=== PATIENT | male | born 1960 | race Caucasian/White ===

== ENCOUNTER 2016-06-05 18:32 | Observation (INO) | payer MEDICARE ==
[2016-06-05] MEDS ORDERED: KETOROLAC 30 MG/ML 1 ML VIAL IVP STA (20:35)
[2016-06-05] MEDS ORDERED: ASPIRIN 81 MG CHEW PO STA (20:35)
--- NOTE | 2016-06-05 20:39 | ED ---
General Adult HPI - General Chief complaint: Chest Pain Stated complaint: arm pit pain Time Seen by Provider: 06/05/16 20:20 Source: patient Mode of arrival: ambulatory Limitations: no limitations - History of Present Illness Initial comments: Patient is a 55-year-old male with history of hypertension, diabetes, family history of cardiac disease presenting with substernal chest pain as well as right arm pain. Patient states the past 2 days he was having substernal discomfort. He tried [id number] medications as he recently is getting better for a cough/congestion. Patient states today he developed right armpit pain for which prompted the ER. Patient tried Aleve without relief. Patient denies fever, chills, shortness breath, nausea, vomiting, diarrhea, dysuria. - Related Data Allergies Allergy/AdvReac Type Severity Reaction Status Date / Time No Known Allergies Allergy Verified 06/05/16 19:04 Review of Systems ROS Statement: Those systems with pertinent positive or pertinent negative responses have been documented in the HPI. Constitutional: No fever and no chills. HENT: No congestion, no rhinorrhea and no sore throat. Eyes: No discharge and no redness. Respiratory: No cough and no shortness of breath. Cardiovascular: +chest pain and no palpitations. Gastrointestinal: No nausea, no vomiting, no abdominal pain and no diarrhea. Genitourinary: No dysuria and no hematuria. Musculoskeletal: No back pain and +arthralgias. Skin: No pallor and no rash. Neurological: No dizziness and No headaches. ROS Other: All systems not noted in ROS Statement are negative. Past Medical History Additional Past Medical History / Comment(s): back pain History of Any Multi-Drug Resistant Organisms: None Reported Past Surgical History: Back Surgery, Cholecystectomy, Orthopedic Surgery Additional Past Surgical History / Comment(s): laminectomy, right hand pins Past Psychological History: No Psychological Hx Reported Smoking Status: Former smoker Past Alcohol Use History: None Reported Past Drug Use History: None Reported General Exam - General Exam Comments Initial Comments: Constitutional: Patient appears well-developed and well-nourished. No distress. Head: Normocephalic and atraumatic. Eyes: Conjunctivae and EOM are normal. Right eye exhibits no discharge. Left eye exhibits no discharge. No scleral icterus. Neck: Normal range of motion. Neck supple. Cardiovascular: Normal rate and regular rhythm. No murmur heard. Pulmonary/Chest: Effort normal and breath sounds normal. No respiratory distress. No wheezes. Reproducible chest wall tenderness as well as right axillary tenderness. Abdominal: Soft. No distension. There is no tenderness. There is no rebound and no guarding. Musculoskeletal: Normal range of motion. No edema or tenderness. Neurological: Patient alert and oriented to person, place, and time. Skin: Skin is warm and dry. Not diaphoretic. Nursing notes and vitals reviewed. Limitations: no limitations Course Vital Signs 06/05/16 18:59 Temperature 99.0 F Pulse Rate 98 Respiratory 20 Rate Blood Pressure 182/88 O2 Sat by Pulse 98 Oximetry - Reevaluation(s) Reevaluation #1: 06/05/16 23:41 Patient mildly feeling better. EKG Findings - EKG Comments: EKG Findings:: Rate 85. NSR. No ST-T wave changes. [place] internal normal . Right bundle branch block. QTc duration normal. Medical Decision Making - Medical Decision Making Patient is a 55-year-old male with history of diabetes, hypertension, hyperlipidemia, family history of early heart disease presenting with chest pain. Patient states he had a cough and congestion 2 weeks ago which was improving. For the past 2 days he been having substernal chest pain that radiates to his right armpit. Patient takes Aleve for the pain without relief. Patient states several years ago he had a stress test and cardiac cath which were unremarkable. Patient states he does not follow with her regular physician. Patient had an EKG showing right bundle branch block. CBC, BMP, troponin unremarkable. Glucose did come back at 354. Chest x-ray was unremarkable. Heart score 4. Patient was resting comfortably in bed. Course of stay improved. Denies pain. Discussed physical exam and diagnostic tests with patient. Questions answered and patient is agreeable to staying in the hospital. Discussed H&P and pertinent diagnostic tests with admitting physician who agrees with plan and accepts admission of patient. - Lab Data Result diagrams: 06/05/16 21:09 06/05/16 21:09 Lab Results 06/05/16 06/05/16 06/05/16 Range/Units 21:09 21:09 21:09 WBC 8.5 (3.8-10.6) k/uL RBC 4.77 (4.30-5.90) m/uL Hgb 14.1 (13.0-17.5) gm/dL Hct 41.5 (39.0-53.0) % MCV 87.2 (80.0-100.0) fL MCH 29.6 (25.0-35.0) pg MCHC 34.0 (31.0-37.0) g/dL RDW 12.8 (11.5-15.5) % Plt Count 295 (150-450) k/uL Neutrophils % 63 % Lymphocytes % 27 % Monocytes % 4 % Eosinophils % 3 % Basophils % 1 % Neutrophils # 5.4 (1.3-7.7) k/uL Lymphocytes # 2.3 (1.0-4.8) k/uL Monocytes # 0.3 (0-1.0) k/uL Eosinophils # 0.2 (0-0.7) k/uL Basophils # 0.1 (0-0.2) k/uL PT 10.4 (9.0-12.0) sec INR 1.0 (<1.1) APTT 22.3 (22.0-30.0) sec Sodium 137 (137-145) mmol/L Potassium 4.7 (3.5-5.1) mmol/L Chloride 101 (98-107) mmol/L Carbon Dioxide 26 (22-30) mmol/L Anion Gap 10 mmol/L BUN 13 (9-20) mg/dL Creatinine 0.67 (0.66-1.25) mg/dL Est GFR (MDRD) Af Amer >60 (>60 ml/min/1.73 sqM) Est GFR (MDRD) Non-Af >60 (>60 ml/min/1.73 sqM) Glucose 354 H (74-99) mg/dL Calcium 9.4 (8.4-10.2) mg/dL Troponin I (0.000-0.034) ng/mL 06/05/16 Range/Units 21:09 WBC (3.8-10.6) k/uL RBC (4.30-5.90) m/uL Hgb (13.0-17.5) gm/dL Hct (39.0-53.0) % MCV (80.0-100.0) fL MCH (25.0-35.0) pg MCHC (31.0-37.0) g/dL RDW (11.5-15.5) % Plt Count (150-450) k/uL Neutrophils % % Lymphocytes % % Monocytes % % Eosinophils % % Basophils % % Neutrophils # (1.3-7.7) k/uL Lymphocytes # (1.0-4.8) k/uL Monocytes # (0-1.0) k/uL Eosinophils # (0-0.7) k/uL Basophils # (0-0.2) k/uL PT (9.0-12.0) sec INR (<1.1) APTT (22.0-30.0) sec Sodium (137-145) mmol/L Potassium (3.5-5.1) mmol/L Chloride (98-107) mmol/L Carbon Dioxide (22-30) mmol/L Anion Gap mmol/L BUN (9-20) mg/dL Creatinine (0.66-1.25) mg/dL Est GFR (MDRD) Af Amer (>60 ml/min/1.73 sqM) Est GFR (MDRD) Non-Af (>60 ml/min/1.73 sqM) Glucose (74-99) mg/dL Calcium (8.4-10.2) mg/dL Troponin I <0.012 (0.000-0.034) ng/mL Disposition Clinical Impression: Chest pain Disposition: ADMITTED IP TO THIS HOSP Referrals: None,Stated [Primary Care Provider] - 1-2 days Decision to Admit Reason: Admit from EC
[2016-06-05 21:21] LABS: Basophils # (A) 0.1 k/uL (0-0.2); Basophils % (A) 1 %; CH 29.8; CHCM 34.4; Eosinophils # (A) 0.2 k/uL (0-0.7); Eosinophils % (A) 3 %; HCT 41.5 % (39.0-53.0); HDW 3.02; HGB 14.1 gm/dL (13.0-17.5); Luc % (Auto) 2; Lymphocytes # (A) 2.3 k/uL (1.0-4.8); Lymphocytes % (A) 27 %; MCH 29.6 pg (25.0-35.0); MCV 87.2 fL (80.0-100.0); Mean Platelet Volume 7.3; Monocytes # (A) 0.3 k/uL (0-1.0); Monocytes % (A) 4 %; Neutrophils # (A) 5.4 k/uL (1.3-7.7); Neutrophils % (A) 63 %; RBC 4.77 m/uL (4.30-5.90); RDW 12.8 % (11.5-15.5); WBC 8.5 k/uL (3.8-10.6); WBC (Perox) 8.77
[2016-06-05 21:31] LABS: Anion Gap 10 mmol/L; Blood Urea Nitrogen 13 mg/dL (9-20); Calcium 9.4 mg/dL (8.4-10.2); Carbon Dioxide 26 mmol/L (22-30); Chloride 101 mmol/L (98-107); Glucose 354 mg/dL (74-99); Non-African American GFR(MDRD) >60 (>60 ml/min/1.73 sqM); Potassium 4.7 mmol/L (3.5-5.1); Sodium 137 mmol/L (137-145)
--- NOTE | 2016-06-05 21:32 | XR ---
EXAMINATION TYPE: XR chest 1V portable DATE OF EXAM: 06/05/2016 9:28 PM Comparison 02/10/2011. HISTORY: Axillary pain TECHNIQUE: Single frontal view of the chest is obtained. FINDINGS: Heart and mediastinum are normal. Lungs are clear. Diaphragm is normal. Bony thorax is int act. There are chest leads. IMPRESSION: No active cardiopulmonary disease. No change.
[2016-06-05 21:42] LABS: Partial Thromboplastin Time 22.3 sec (22.0-30.0); Prothrombin Time 10.4 sec (9.0-12.0)
[2016-06-06] MEDS: ACETAMINOPHEN TAB 325 MG TAB PO PRN ×3 (01:01→20:36)
[2016-06-06 06:58] LABS: Glucose,Whole Blood 294 mg/dL (75-99)
[2016-06-06 10:54] LABS: Hemoglobin A1C 11.3 % (4.2-6.1)
[2016-06-06 12:11] LABS: Glucose,Whole Blood 383 mg/dL (75-99)
[2016-06-06 17:04] LABS: Glucose,Whole Blood 334 mg/dL (75-99)
[2016-06-06] MEDS ORDERED: NAPROXEN 250 MG TAB PO PRN (17:18)
[2016-06-06] MEDS ORDERED: INSULIN LISPRO (humaLOG) 300 UNIT/3 ML VIAL SQ SCH (17:30)
[2016-06-06] MEDS: LOSARTAN 50 MG TAB PO SCH (17:49)
[2016-06-06] MEDS: metFORMIN 500 MG TAB PO SCH (17:49)
[2016-06-06 19:45] VITALS: RESP 16
[2016-06-06 20:26] LABS: Glucose,Whole Blood 335 mg/dL (75-99)
[2016-06-06] MEDS: GLIMEPIRIDE 4 MG TAB PO SCH (20:36)
[2016-06-06] MEDS ORDERED: NAPROXEN 250 MG TAB PO SCH (21:00)
[2016-06-06] MEDS ORDERED: HYDROcodone/APAP 5-325MG 1 EACH TAB PO PRN (21:11)
[2016-06-06] MEDS ORDERED: IBUPROFEN 800 MG TAB PO PRN (21:13)
--- NOTE | 2016-06-06 23:46 | HP ---
DATE OF ADMISSION: 06/05/2016 CHIEF COMPLAINT: Chest pain and newly diagnosed uncontrolled diabetes. HISTORY OF PRESENT ILLNESS: This is the first admission for this 55 -year-old white male. He presented to emergency room and he developed pain in the right anterior chest area. It was more in the right axilla. He had no nausea or vomiting, shortness of breath, diaphoresis, etc. Studies in the emergency room were negative. He was admitted for observation. He has been diabetic in the past and was on insulin at one point, but thought everything was under good control and stopped it. Now his hemoglobin is 11.3. REVIEW OF SYSTEMS: He has had no difficulty with vision and hearing, chest pain, cough, hemoptysis, orthopnea, PND, murmurs, rheumatic fever, pain, vomiting, diarrhea, liver disease, pancreatitis, jaundice, hematuria, frequency, urgency, arthralgias, diabetes, etc. Past medical history, family history, and personal and social histories are unremarkable or noncontributory otherwise. He is on Aleve only for medication. Patient is not allergic to any medication. He had a procedure on his back and a cholecystectomy. He does not smoke. Hemoglobin A1c was 11.3 and blood sugars around 400. PHYSICAL EXAMINATION: VITAL SIGNS: Blood pressure 150/80 with a pulse of 83, respirations 35 and he is afebrile. GENERAL: Appeared to be overweight and in no acute distress. SKIN: Skin color is normal. Skin is warm and dry. Lymph nodes are not enlarged. Head, ears, eyes, nose, mouth, and throat were normal. NECK: Neck veins not distended. Thyroid is not enlarged. Chest is clear. Cardiac exam normal. Abdomen soft, nontender and the extremities are normal. IMPRESSION: 1. Chest pain, atypical. 2. Uncontrolled diabetes mellitus. PLAN: 1. Bedrest. 2. IV fluids. 3. Serial EKGs and enzymes. 4. Start Metformin and Amaryl and then he does not want to take insulin ( ) diabetic teaching. 5. Probably home tomorrow.
--- NOTE | 2016-06-06 23:51 | PN ---
DATE OF SERVICE: 06/06/2016 CHIEF COMPLAINT: Uncontrolled diabetes. HISTORY OF PRESENT ILLNESS: This gentleman is doing well. We will start him on oral program. He does not want to take insulin. PHYSICAL EXAMINATION: CHEST: Clear. The cardiac exam is normal. The abdomen is soft, nontender. IMPRESSION: 1. Uncontrolled diabetes. 2. Atypical chest pain. PLAN: Start oral medications and probably home tomorrow.
[2016-06-07 07:02] LABS: Glucose,Whole Blood 191 mg/dL (75-99)
[2016-06-07 07:26] LABS: Cholesterol 156 mg/dL (<200); HDL Cholesterol 35 mg/dL (40-60); Triglycerides 445 mg/dL (<150)
[2016-06-07] MEDS: GLIMEPIRIDE 4 MG TAB PO SCH (08:39)
[2016-06-07] MEDS: LOSARTAN 50 MG TAB PO SCH (08:39)
[2016-06-07] MEDS: metFORMIN 500 MG TAB PO SCH (08:39)
[2016-06-07] MEDS ORDERED: ASPIRIN 81 MG CHEW PO SCH (09:00)
[2016-06-07 10:22] VITALS: BMI 41.6
[2016-06-07 11:20] VITALS: BP 153/87; PULSE 76; TEMP 98.7
[2016-06-07 11:56] LABS: Glucose,Whole Blood 270 mg/dL (75-99)
--- NOTE | 2016-06-07 12:32 | P.DS ---
Providers Date of admission: 06/05/16 23:10 Expected date of discharge: 06/07/16 Attending physician: Marvin Fallon Primary care physician: Stated None Hospital Course: 55-year-old presented to the emergency room with a chief complaint of developing right anterior chest wall pain. Patient stated there was no nausea no vomiting no shortness of breath did not break out in a sweat. Patient was admitted to the services of the attending. Cardiac enzymes 3 sets were negative. Patient states he's been a diabetic and at one point was on insulin but thought that his blood sugars were under control. Hemoglobin A1c 11.3.. The blood sugars were ranging 270 to 335 the low was 191. Patient was felt to be stable and appropriate proceed with a discharge to home Impression discharge diagnosis Present on admission chest pain atypical features no evidence of acute coronary syndrome History of type 2 diabetes uncontrolled hemoglobin A1c 11.3 on insulin Episodes of hyperglycemia Morbid obesity BMI 42 Essential hypertension The above dictated assessment and findings were discussed with dr fallon . Impression and the plan of care have been dictated as directed. Julieta Ramon nurse practitioner acting as a scribe for dr fallon Plan - Discharge Summary Discharge Medication List Aspirin [Adult Low Dose Aspirin EC] 81 mg PO DAILY 06/06/16 [History] Glimepiride [Amaryl] 4 mg PO BID 06/06/16 [History] Losartan Potassium [Cozaar] 100 mg PO DAILY 06/06/16 [History] Magnesium Oxide [Mag-Ox] 250 mg PO HS 06/06/16 [History] Naproxen Sodium [Aleve] 440 mg PO Q12HR PRN 06/06/16 [History] Naproxen [Naprosyn] 500 mg PO BID PRN 06/06/16 [History] metFORMIN HCL 1,000 mg PO AC-BID 06/06/16 [History] Follow up Appointment(s)/Referral(s): None,Stated [Primary Care Provider] - 1-2 days Marvin Fallon MD [STAFF PHYSICIAN] - 06/09/16 Discharge Disposition: HOME SELF-CARE
--- NOTE | 2016-06-07 18:55 | PN ---
CHIEF COMPLAINT: Chest pain and uncontrolled diabetes. HISTORY OF PRESENT ILLNESS: This gentleman is doing well and would like to go home. He has had no further chest discomfort. His biggest problem is his uncontrolled diabetes. PHYSICAL EXAMINATION: CHEST: Clear. CARDIAC: Normal. ABDOMEN: Soft, nontender. IMPRESSION: 1. Uncontrolled type 2 diabetes mellitus and rro-ubeqiao-unbanubst diabetes mellitus. 2. Chest pain, non-cardiac. PLAN: Home today with appropriate followup, considering his sugars are high. This will be arranged by the nurse practitioner.
== END 2016-06-07 13:06 | disposition home or self-care (01) ==
LOC: EC 18:32 → 3OBS 23:10
PROVIDERS: ADMIT Family Medicine; ATTEND Family Medicine
DX: R07.89 Other chest pain (principal); M79.601 Pain in right arm; E11.65 Type 2 diabetes mellitus with hyperglycemia; E66.01 Morbid (severe) obesity due to excess calories; Z68.41 Body mass index [BMI] 40.0-44.9, adult; I10 Essential (primary) hypertension; Z87.891 Personal history of nicotine dependence; Z82.49 Family history of ischemic heart disease and other diseases of the circulatory system; T38.3X6A Underdosing of insulin and oral hypoglycemic [antidiabetic] drugs, initial encounter; Z91.128 Patient's intentional underdosing of medication regimen for other reason
CPT/HCPCS: 96374; 99285; 36415; 93005; 80061; 80048; 83036; 84484 ×2; 85025; 85610; 85730; 71010; G0378 ×3; J1885

== ENCOUNTER 2016-10-17 14:18 | Emergency (ER) | payer MEDICARE ==
[2016-10-17 14:46] VITALS: BP 138/99; PULSE 105; RESP 18; TEMP 98.4
[2016-10-17] MEDS ORDERED: KETOROLAC 60 MG/2 ML VIAL IM STA (15:51)
[2016-10-17] MEDS ORDERED: ORPHENADRINE 30 MG/ML 2 ML VIAL IM STA (15:51)
[2016-10-17] MEDS ORDERED: MORPHINE SULFATE 10 MG/ML SYRINGE IM STA (15:52)
--- NOTE | 2016-10-17 16:13 | ED ---
Back Pain HPI - General Chief Complaint: Back Pain/Injury Stated Complaint: Lower Back/Hip Pain-right side Time Seen by Provider: 10/17/16 15:37 Source: patient, RN notes reviewed, old records reviewed Limitations: no limitations - History of Present Illness Initial Comments: 56-year-old male presents the ED chief complaint of acute right sided lower back pain radiating down towards his hip for the past 2 days. He reports that history a laminectomy over his L4-L5. He reported he had surgery proximally 10 years ago. He reports that he was previously on multiple pain medications but is now off of them for the past few years. He reports his been taking Motrin and naproxen for pain but it has not been helping this past 2 days. Patient states that it's been difficult for him to ambulate. He normally does have to walk with a cane. He denies any abdominal pain, or urinary incontinence or saddle anesthesias. He states that he does have full sensation going down his leg. He denies any pain with flexion of the hip, knee or foot. - Related Data Home Medications Medication Instructions Recorded Confirmed Aspirin [Adult Low Dose Aspirin EC] 81 mg PO DAILY 06/06/16 06/06/16 Glimepiride [Amaryl] 4 mg PO BID 06/06/16 06/06/16 Losartan Potassium [Cozaar] 100 mg PO DAILY 06/06/16 06/06/16 Magnesium Oxide [Mag-Ox] 250 mg PO HS 06/06/16 06/06/16 Naproxen Sodium [Aleve] 440 mg PO Q12HR PRN 06/06/16 06/06/16 Naproxen [Naprosyn] 500 mg PO BID PRN 06/06/16 06/06/16 metFORMIN HCL 1,000 mg PO AC-BID 06/06/16 06/06/16 Previous Rx's Medication Instructions Recorded Glimepiride [Amaryl] 4 mg PO BID #60 tab 06/07/16 Losartan [Cozaar] 100 mg PO DAILY #60 tab 06/07/16 metFORMIN HCL [Glucophage] 1,000 mg PO BID-W/MEALS #60 tab 06/07/16 Diazepam [Valium] 5 mg PO TID #12 tab 10/17/16 HYDROcodone/APAP 5-325MG [[place] 1 tab PO Q6HR PRN #15 tab 10/17/16 8-325] Allergies Allergy/AdvReac Type Severity Reaction Status Date / Time No Known Allergies Allergy Verified 10/17/16 14:46 Review of Systems ROS Statement: Those systems with pertinent positive or pertinent negative responses have been documented in the HPI. ROS Other: All systems not noted in ROS Statement are negative. Past Medical History Past Medical History: Diabetes Mellitus, Hyperlipidemia, Hypertension Additional Past Medical History / Comment(s): back pain History of Any Multi-Drug Resistant Organisms: None Reported Past Surgical History: Adenoidectomy, Back Surgery, Cholecystectomy, Heart Catheterization, Orthopedic Surgery Additional Past Surgical History / Comment(s): laminectomy, right hand pins, stress test and cadiac cath negative Past Anesthesia/Blood Transfusion Reactions: No Reported Reaction Past Psychological History: No Psychological Hx Reported Smoking Status: Former smoker Past Alcohol Use History: None Reported Past Drug Use History: None Reported - Past Family History Father Family Medical History: Hypertension Mother History Unknown: Yes General Exam Limitations: no limitations General appearance: alert, in no apparent distress Head exam: Present: atraumatic, normocephalic, normal inspection Eye exam: Present: normal appearance, PERRL, EOMI. Absent: scleral icterus, conjunctival injection, periorbital swelling ENT exam: Present: normal exam, mucous membranes moist Neck exam: Present: normal inspection. Absent: tenderness, meningismus, lymphadenopathy Respiratory exam: Present: normal lung sounds bilaterally. Absent: respiratory distress, wheezes, rales, rhonchi, stridor Cardiovascular Exam: Present: regular rate, normal rhythm, normal heart sounds. Absent: systolic murmur, diastolic murmur, rubs, gallop, clicks GI/Abdominal exam: Present: soft, normal bowel sounds. Absent: distended, tenderness, guarding, rebound, rigid Extremities exam: Present: normal inspection, full ROM, normal capillary refill. Absent: tenderness, pedal edema, joint swelling, calf tenderness Back exam: Present: normal inspection, tenderness (Patient has some tenderness over the lumbar spine and sacrum. Patient reports the pain radiates towards the right hip.). Absent: full ROM Neurological exam: Present: alert, oriented X3, CN II-XII intact Psychiatric exam: Present: normal affect, normal mood Skin exam: Present: warm, dry, intact, normal color. Absent: rash Course Vital Signs 10/17/16 14:43 Temperature 98.4 F Pulse Rate 105 H Respiratory 18 Rate Blood Pressure 138/99 O2 Sat by Pulse 97 Oximetry Medical Decision Making - Medical Decision Making 56-year-old male presents the ED chief complaint of acute right sided lower back pain radiating down towards his hip for the past 2 days. He reports that history a laminectomy over his L4-L5. He reported he had surgery proximally 10 years ago. He reports that he was previously on multiple pain medications but is now off of them for the past few years. He reports his been taking Motrin and naproxen for pain but it has not been helping this past 2 days. Patient states that it's been difficult for him to ambulate. He normally does have to walk with a cane. He denies any abdominal pain, or urinary incontinence or saddle anesthesias. is somewhat tender over the L4-L5 area radiating down towards his sacrum and coccyx. Tender to palpation over the right lumbar paraspinous muscles. Patient was given IM Norflex, Toradol and morphine. X- rays were reviewed and are negative for any acute process. There is mild spondylitic changes noted spine. Patient was reevaluated and feels like the pain is somewhat subsiding at this time. Discussed that I'll write the patient for a short course of pain medicine and muscle relaxer to use until this acute flareup subsides. Discussed following up with his primary care physician tomorrow. Patient agrees to treatment plan will comply. Discussed concern for saddle anesthesias of any worsening signs or symptoms occur to return to the emergency department. Patient agrees to treatment plan will comply. - Radiology Data Radiology results: report reviewed Mild spondylitic changes. No fracture noted. Hip and pelvis x-ray reviewed and negative for any acute process. Disposition Clinical Impression: Acute exacerbation of chronic low back pain, Right hip pain Disposition: HOME SELF-CARE Condition: Good Instructions: Acute Low Back Pain (ED) Additional Instructions: Patient advised to follow-up with your neurologist Dr. Stark. Take medications as prescribed. Recommended doing moist heat to the lower back and lumbar spine. Return to the emergency department if any alarming signs or symptoms occur including fever, chills, bowel or bladder incontinence. Prescriptions: Diazepam [Valium] 5 mg PO TID #12 tab HYDROcodone/APAP 5-325MG [[place] 5-325] 1 tab PO Q6HR PRN #15 tab PRN Reason: Pain Referrals: None,Stated [Primary Care Provider] - 1-2 days Time of Disposition: 16:59
--- NOTE | 2016-10-17 16:43 | XR ---
EXAMINATION TYPE: XR lumbar spine 2 or 3V DATE OF EXAM: 10/17/2016 COMPARISON: NONE HISTORY: Back pain for 3 days TECHNIQUE: 3 views FINDINGS: Vertebra have normal alignment. Posterior elements are intact. Sacroiliac joints appear nor mal. There is mild spurring of the endplates. There are clips from cholecystectomy. IMPRESSION: Mild spondylotic changes. No fracture.
--- NOTE | 2016-10-17 16:48 | XR ---
EXAMINATION TYPE: XR Hip RT and AP Pelvis DATE OF EXAM: 10/17/2016 COMPARISON: NONE HISTORY: Pain TECHNIQUE: A single AP view of the pelvis is obtained. Two views of the right hip are obtained. FINDINGS: The pelvic ring is intact. Proximal right femur and hip joint are intact. There is no sign of a fracture. Sacroiliac joints appear normal. IMPRESSION: There is no acute fracture or dislocation in the pelvis or right hip.
== END 2016-10-17 17:27 | disposition home or self-care (01) ==
LOC: EC 14:18
DX: M54.5 Low back pain (principal); G89.29 Other chronic pain; M25.551 Pain in right hip; E11.9 Type 2 diabetes mellitus without complications; I10 Essential (primary) hypertension; Z98.890 Other specified postprocedural states; Z87.891 Personal history of nicotine dependence; Z79.82 Long term (current) use of aspirin; Z79.84 Long term (current) use of oral hypoglycemic drugs; Z79.899 Other long term (current) drug therapy
CPT/HCPCS: 72100; 73502; 99284; 96372 ×3; J2360; J2270; J1885

== ENCOUNTER 2018-12-05 16:53 | Emergency (ER) | payer MEDICARE ==
[2018-12-05] MEDS ORDERED: IBUPROFEN 800 MG TAB PO STA (17:22)
[2018-12-05] MEDS ORDERED: HYDROmorphone 1 MG/ML 1 ML SYRINGE IM STA (17:22)
[2018-12-05] MEDS ORDERED: DIAZEPAM 5 MG TAB PO STA (17:22)
[2018-12-05] MEDS ORDERED: DEXAMETHASONE 4 MG TAB PO STA (17:22)
--- NOTE | 2018-12-05 17:23 | ED ---
Back Pain [facility] - General Chief Complaint: Back Pain/Injury Stated Complaint: Back pain Time Seen by Provider: 12/05/18 17:05 Source: patient, RN notes reviewed, old records reviewed Limitations: physical limitation - History of Present Illness Initial Comments: This is a 58-year-old male the ER for evaluation acute on chronic back pain. He is a Continuation Brought to ER by his today for evaluation of back pain further evaluation of near pain control. Patient has history of laminectomy. No recent surgery. Patient has no recent IV drug abuse or fevers. Patient does have history of recent MRI which does show some spinal stenosis. Patient denies neurological dosages complaining of severe pain severe lumbar sacral pain. Patient is taking [place] at home at this time not having great help. Patient is having multiple falls in the future for pain control and neurology. MD Complaint: back pain, other (Chronic) -: days(s) Similar Symptoms Previously: Yes Place: home Radiation: buttocks Severity: severe Severity scale (1-10): 10 Quality: sharp, aching Consistency: constant Improves With: immobilization Worsens With: movement, walking Associated Symptoms: denies other symptoms - Related Data Home Medications Medication Instructions Recorded Confirmed Aspirin [Adult Low Dose Aspirin EC] 81 mg PO DAILY 06/06/16 06/06/16 Glimepiride [Amaryl] 4 mg PO BID 06/06/16 06/06/16 Losartan Potassium [Cozaar] 100 mg PO DAILY 06/06/16 06/06/16 Magnesium Oxide [Mag-Ox] 250 mg PO HS 06/06/16 06/06/16 Naproxen Sodium [Aleve] 440 mg PO Q12HR PRN 06/06/16 06/06/16 Naproxen [Naprosyn] 500 mg PO BID PRN 06/06/16 06/06/16 metFORMIN HCL 1,000 mg PO AC-BID 06/06/16 06/06/16 Previous Rx's Medication Instructions Recorded Glimepiride [Amaryl] 4 mg PO BID #60 tab 06/07/16 Losartan [Cozaar] 100 mg PO DAILY #60 tab 06/07/16 metFORMIN HCL [Glucophage] 1,000 mg PO BID-W/MEALS #60 tab 06/07/16 Diazepam [Valium] 5 mg PO TID #12 tab 10/17/16 HYDROcodone/APAP 5-325MG [[place] 1 tab PO Q6HR PRN #15 tab 10/17/16 5-325] Allergies Allergy/AdvReac Type Severity Reaction Status Date / Time No Known Allergies Allergy Verified 12/05/18 17:31 Review of Systems ROS Statement: Those systems with pertinent positive or pertinent negative responses have been documented in the HPI. ROS Other: All systems not noted in ROS Statement are negative. Past Medical History Past Medical History: Diabetes Mellitus, Hyperlipidemia, Hypertension Additional Past Medical History / Comment(s): back pain History of Any Multi-Drug Resistant Organisms: None Reported Past Surgical History: Adenoidectomy, Back Surgery, Cholecystectomy, Heart Catheterization, Orthopedic Surgery Additional Past Surgical History / Comment(s): laminectomy, right hand pins, stress test and cadiac cath negative Past Anesthesia/Blood Transfusion Reactions: No Reported Reaction Past Psychological History: No Psychological Hx Reported Smoking Status: Former smoker Past Alcohol Use History: None Reported Past Drug Use History: None Reported - Past Family History Father Family Medical History: Hypertension Mother History Unknown: Yes General Exam Limitations: physical limitation General appearance: alert, in no apparent distress, obese Head exam: Present: atraumatic, normocephalic, normal inspection Eye exam: Present: normal appearance, PERRL, EOMI. Absent: scleral icterus, conjunctival injection, periorbital swelling ENT exam: Present: normal exam, mucous membranes moist Neck exam: Present: normal inspection. Absent: tenderness, meningismus, lymphadenopathy Respiratory exam: Present: normal lung sounds bilaterally. Absent: respiratory distress, wheezes, rales, rhonchi, stridor Cardiovascular Exam: Present: regular rate, normal rhythm, normal heart sounds. Absent: systolic murmur, diastolic murmur, rubs, gallop, clicks GI/Abdominal exam: Present: soft, normal bowel sounds. Absent: distended, tenderness, guarding, rebound, rigid Rectal exam: Present: deferred Extremities exam: Present: normal inspection, full ROM, normal capillary refill. Absent: tenderness, pedal edema, joint swelling, calf tenderness Back exam: Present: normal inspection, muscle spasm, paraspinal tenderness, other (" Noted). Absent: tenderness, CVA tenderness (R), vertebral tenderness Neurological exam: Present: alert, oriented X3, CN II-XII intact. Absent: motor sensory deficit Psychiatric exam: Present: normal affect, normal mood Skin exam: Present: warm, dry, intact, normal color. Absent: rash Course Vital Signs 12/05/18 16:55 Temperature 98.3 F Pulse Rate 93 Respiratory 20 Rate Blood Pressure 175/104 O2 Sat by Pulse 99 Oximetry - Reevaluation(s) Reevaluation #1: 12/05/18 17:37 Medical record reviewed Reevaluation #2: 12/05/18 17:37 Patient spoke at length with regarding optimal therapy. Decision is made for pain control today continue to follow with neurologist reaction Reevaluation #3: 12/05/18 17:38 Patient has pain control Medical Decision Making - Medical Decision Making 58 male the ER with acute on chronic back pain. Patient given pain medication in the ER and can be discharged home Disposition Clinical Impression: Sciatica, Lumbar radiculopathy Disposition: HOME SELF-CARE Condition: Good Instructions (If sedation given, give patient instructions): Acute Low Back Pain (ED) Is patient prescribed a controlled substance at d/c from ED?: No Referrals: Ira Tillman DO [Primary Care Provider] - 1-2 days
[2018-12-05 18:25] VITALS: BP 160/86; PULSE 81; RESP 18; TEMP 99.2
== END 2018-12-05 18:23 | disposition home or self-care (01) ==
LOC: EC 16:53
DX: M54.16 Radiculopathy, lumbar region (principal); M54.40 Lumbago with sciatica, unspecified side; G89.29 Other chronic pain; E11.9 Type 2 diabetes mellitus without complications; E78.5 Hyperlipidemia, unspecified; I10 Essential (primary) hypertension; Z79.891 Long term (current) use of opiate analgesic; Z79.1 Long term (current) use of non-steroidal anti-inflammatories (NSAID); Z79.82 Long term (current) use of aspirin; Z79.84 Long term (current) use of oral hypoglycemic drugs; Z79.899 Other long term (current) drug therapy; Z87.891 Personal history of nicotine dependence; Z98.1 Arthrodesis status; Z98.890 Other specified postprocedural states; Z95.5 Presence of coronary angioplasty implant and graft; Z96.698 Presence of other orthopedic joint implants
CPT/HCPCS: 99284; 96372; J8540; J1170